=== PATIENT | female | born 1940 | race Caucasian/White ===

== ENCOUNTER 2017-12-30 18:34 | Emergency (ER) | payer MEDICARE ==
[2017-12-30 18:53] VITALS: BP 142/65
--- NOTE | 2017-12-30 19:29 | EDM.PDOC ---
ED HPI GENERAL MEDICAL PROBLEM - General Chief Complaint: Upper Extremity Injury/Pain Stated Complaint: FELL ON ELBOW Time Seen by Provider: 12/30/17 19:02 Source of Information: Reports: Patient, RN Notes Reviewed - History of Present Illness INITIAL COMMENTS - FREE TEXT/NARRATIVE: 77 year old female fell this past AM about 10 hrs ago landing on L hand. As time as gone on today more pain L elbow, increased pain with movement of elbow and also supination. Some radiation of pain up to L shoulder. No hand or wrist pain. No other area of injury. 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: Musculoskeletal History: Reports: Back Pain, Chronic - Past Surgical History HEENT Surgical History: Reports: Tonsillectomy GI Surgical History: Reports: Cholecystectomy Female Surgical History: Reports: Cystectomy, Hysterectomy Musculoskeletal Surgical History: Reports: Shoulder Surgery, Other (See Below) Social & Family History - Family History Family Medical History: Noncontributory - Tobacco Use Smoking Status *Q: Never Smoker - Caffeine Use Caffeine Use: Reports: Coffee, Tea - Recreational Drug Use Recreational Drug Use: No Review of Systems - Review of Systems Review Of Systems: See Below Mouth/Throat: Reports: No Symptoms Respiratory: Denies: Shortness of Breath Cardiovascular: Denies: Chest Pain GI/Abdominal: Denies: Abdominal Pain, Nausea, Vomiting Musculoskeletal: Reports: Joint Pain (L elbow) Skin: Denies: Bruising Neurological: Denies: Numbness, Tingling ED EXAM, GENERAL - Physical Exam Exam: See Below General Appearance: Alert, No Apparent Distress Head: Atraumatic Neck: Supple Respiratory/Chest: No Respiratory Distress Extremities: Other (There is tenderness of the medial and lateral L elbow, mild pain with motion, not visibly swollen, no deformity, wrist, hand shoulder nontender with good ROM). No: Joint Swelling Neurological: Alert, Oriented, No Motor/Sensory Deficits Skin Exam: Warm, Dry, Normal Color Course - Vital Signs Last Recorded V/S: Last Vital Signs Temp 96.6 F 12/30/17 18:51 Pulse 66 12/30/17 18:51 Resp 20 12/30/17 18:51 BP 142/65 H 12/30/17 18:51 Pulse Ox 99 12/30/17 18:51 - Orders/Labs/Meds Orders: Active Orders 24 hr Category Date Time Status Elbow Min 3V Lt [CR] Stat Exams 12/30/17 19:10 Taken - Re-Assessments/Exams Free Text/Narrative Re-Assessment/Exam: 12/30/17 20:05 no fx Departure - Departure Time of Disposition: 20:05 Disposition: Home, Self-Care 01 Condition: Fair Clinical Impression: Strain of elbow, left Qualifiers: Encounter type: initial encounter Qualified Code(s): S56.912A - Strain of unspecified muscles, fascia and tendons at forearm level, left arm, initial encounter Fall Qualifiers: Encounter type: initial encounter Qualified Code(s): W19.XXXA - Unspecified fall, initial encounter - Discharge Information Referrals: Janina Olivas, CANDY PULLER [Primary Care Provider] - Forms: ED Department Discharge Additional Instructions: penny wrap L elbow, ice packs if needed for swelling, rest arm and elbow, advil or tylenol as needed for discomfort, have rechecked if pain not resolving within 5 to 7 days as expected. - My Orders Last 24 Hours: My Active Orders 12/30/17 19:10 Elbow Min 3V Lt [CR] Stat - Assessment/Plan Last 24 Hours: My Active Orders 12/30/17 19:10 Elbow Min 3V Lt [CR] Stat
--- NOTE | 2017-12-31 10:01 | CR ---
Left elbow: Four views of the left elbow were obtained. Comparison: No prior elbow study. Joint spaces are preserved. No joint effusion is seen. No acute fracture or other abnormality is identified. Impression: 1. No abnormalities are seen on left elbow study. Diagnostic code #1
== END 2017-12-30 20:20 | disposition home or self-care (01) ==
LOC: JD.ED 18:34
DX: S56.912A Strain of unspecified muscles, fascia and tendons at forearm level, left arm, initial encounter (principal); Z88.8 Allergy status to other drugs, medicaments and biological substances; Z79.899 Other long term (current) drug therapy; Z79.82 Long term (current) use of aspirin; W19.XXXA Unspecified fall, initial encounter
CPT/HCPCS: 73080-26-LT; 73080-LT; 99283

== ENCOUNTER 2018-11-24 14:12 | Emergency (ER) | payer MEDICARE ==
[2018-11-24 14:44] VITALS: BP 128/69
== END 2018-11-24 15:00 | disposition home or self-care (01) ==
LOC: JD.ED 14:12
DX: Z53.21 Procedure and treatment not carried out due to patient leaving prior to being seen by health care provider (principal)